=== PATIENT | male | born 1975 | race Caucasian/White ===

== ENCOUNTER 2018-05-25 11:22 | Emergency (ER) | payer OTHER ==
[2018-05-25 11:38] VITALS: TEMP 98.2
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
[2018-05-25 12:35] VITALS: BP 146/74; O2SAT 99
== END 2018-05-25 12:25 | disposition home or self-care (01) ==
LOC: ER 11:22
DX: S83.411A Sprain of medial collateral ligament of right knee, initial encounter (principal); V28.0XXA Motorcycle driver injured in noncollision transport accident in nontraffic accident, initial encounter; Y92.410 Unspecified street and highway as the place of occurrence of the external cause; Z87.891 Personal history of nicotine dependence